=== PATIENT | male | born 1965 | race Hispanic/Latino ===

== ENCOUNTER 2017-03-09 09:14 | Emergency (ER) | payer SELFPAY ==
[2017-03-09 09:18] VITALS: BMI 38.0
--- NOTE | 2017-03-09 09:32 | ED PDOC ---
Arrival/HPI - General Chief Complaint: Trauma Time Seen by Provider: 03/09/17 09:21 Historian: Patient - History of Present Illness Narrative History of Present Illness (Text): 03/09/17 09:32 51 y/o male, no pmh, nkda, last tetanus under 4 years ago, c/o scalp laceration x 1 hour. Pt. stated that he accidentally scraped the scar against the sharp corner of the van without direct hard force, no LOC, event noticed and alert entirely, no nausea or vomiting, no dizziness, no headache, no change in vision , no history or family history of aneurysm or blood disorders, not on any antiplatete or anticoagulant, no night sweat, no other medical or psychological complaints. Past Medical History - Provider Review Nursing Documentation Reviewed: Yes - Psychiatric Hx Substance Use: No Family/Social History - Physician Review Nursing Documentation Reviewed: Yes Family/Social History: Unknown Family HX Smoking Status: Light Smoker < 10 Cigarettes Daily Hx Alcohol Use: No Hx Substance Use: No Allergies/Home Meds Allergies/Adverse Reactions: Allergies No Known Allergies Allergy (Verified 03/09/17 09:17) Review of Systems - Review of Systems Constitutional: absent: Fatigue, Fevers Eyes: absent: Vision Changes ENT: absent: Hearing Changes Respiratory: absent: SOB, Cough Cardiovascular: absent: Chest Pain Genitourinary Male: absent: Dysuria, Frequency Musculoskeletal: absent: Arthralgias, Back Pain Skin: Laceration. absent: Rash, Pruritis, Skin Lesions, Abscess, Ulcer Neurological: absent: Headache, Dizziness, Focal Weakness, Gait Changes, Speech Changes Physical Exam Vital Signs Reviewed: Yes Vital Signs Temp Pulse Resp BP Pulse Ox 03/09/17 09:18 98.2 F 72 18 163/91 H 98 Temperature: Afebrile Blood Pressure: Hypertensive Pulse: Regular Respiratory Rate: Normal Appearance: Positive for: Well-Appearing, Non-Toxic, Comfortable Pain Distress: Mild Mental Status: Positive for: Alert and Oriented X 3 - Systems Exam Head: Present: Atraumatic, Other (there is approx. 3cm superficial scalp laceration noted on the left parietal region with no oozing, no scalp or skull tenderness, no bony tenderness, no temporal artery tenderness. ) Pupils: Present: PERRL Extroacular Muscles: Present: EOMI Conjunctiva: Present: Normal Mouth: Present: Moist Mucous Membranes Neck: Present: Normal Range of Motion, Trachea Midline. No: MIDLINE TENDERNESS , Paraspinal Tenderness, Lymphadenopathy Respiratory/Chest: Present: Clear to Auscultation, Good Air Exchange. No: Respiratory Distress, Accessory Muscle Use Cardiovascular: Present: Regular Rate and Rhythm, Normal S1, S2. No: Murmurs Abdomen: Present: Normal Bowel Sounds. No: Tenderness, Distention, Peritoneal Signs Back: Present: Normal Inspection Upper Extremity: Present: Normal Inspection. No: Cyanosis, Edema Lower Extremity: Present: Normal Inspection. No: Edema Neurological: Present: GCS=15, CN II-XII Intact, Speech Normal, Motor Func Grossly Intact, Gait Normal, Memory Normal, Other (normal finger to nose test, normal heel to pratt test, no drift, no weakness, walking with normal gait and posture. ) Skin: Present: Warm, Dry, Normal Color. No: Rashes Psychiatric: Present: Alert, Oriented x 3, Normal Insight, Normal Concentration Medical Decision Making ED Course and Treatment: 03/09/17 09:54 -Pt. refused pain med. -Pt. refused radiology studies and there is no emergent indication of the CT head at this point to be concerning for the ICH. -pt. stated that he sustained the laceration from accidentally bumped to the van and no cardiopulmonary or neurological symptoms/signs prior to the injury. -Sensation intact, motor 5/5, wound irrigate with normal saline with 500cc, clean with betadine, 1% lidocaine injected approx. 1cc, sterile procedure, 7 willa with good approximation, hemostasis obtained, bacitracin and gauze dressing, sensation intact, motor 5/5, bleeding less than 5cc during procedure. -Discharge home with bacitracin oinment, take tylenol for pain, ice compression , willa need to be removed by day 7, return to the ER immediately if you have nausea/vomiting/dizziness/change in vision or any new or worsening signs or symptoms, follow up with your own pmd within 2 days, return to the ER for any new or worsening signs or symptoms. - PA / RESOURCE PARAPROFESSIONAL / Resident Statement / has reviewed & agrees with the documentation as recorded. Disposition/Present on Arrival - Present on Arrival Any Indicators Present on Arrival: No History of DVT/PE: No History of Uncontrolled Diabetes: No Urinary Catheter: No History of Decub. Ulcer: No History Surgical Site Infection Following: None - Disposition Have Diagnosis and Disposition been Completed?: Yes Diagnosis: Scalp laceration Disposition: HOME/ ROUTINE Disposition Time: 09:59 Patient Plan: Discharge Condition: GOOD Additional Instructions: -Discharge home with bacitracin oinment, take tylenol for pain, ice compression , willa need to be removed by day 7, return to the ER immediately if you have nausea/vomiting/dizziness/change in vision or any new or worsening signs or symptoms, follow up with your own pmd within 2 days, return to the ER for any new or worsening signs or symptoms. Prescriptions: Acetaminophen [Tylenol 325mg tab] 2 tab PO QID PRN #35 tab PRN Reason: Other Bacitracin Ointment [Bacitracin] 1 appful TOP BID #15 g [facility]errals: [facility] [place] [Outside] - Follow up with primary Forms: WORK NOTE
[2017-03-09 09:36] VITALS: TEMP 98.2; O2SAT 98
[2017-03-09 10:12] VITALS: BP 159/90; PULSE 76; RESP 16
== END 2017-03-09 10:10 | disposition home or self-care (01) ==
LOC: ED 09:14
DX: S01.01XA Laceration without foreign body of scalp, initial encounter (principal); W22.8XXA Striking against or struck by other objects, initial encounter; F17.210 Nicotine dependence, cigarettes, uncomplicated

== ENCOUNTER 2017-03-16 11:53 | Emergency (ER) | payer SELFPAY ==
[2017-03-16 11:53] VITALS: BMI 38.0
[2017-03-16 12:08] VITALS: BP 137/85; PULSE 88; TEMP 99.3; O2SAT 99
[2017-03-16 12:14] VITALS: RESP 18
--- NOTE | 2017-03-16 12:30 | ED PDOC ---
Arrival/HPI - General Chief Complaint: Suture/Staple Removal Time Seen by Provider: 03/16/17 12:20 Historian: Patient - History of Present Illness Narrative History of Present Illness (Text): 03/16/17 12:24 51 y/o male, here for the staple removal from the scalp for 7 days. Pt. stated that it has been healing well and dry, no headache or dizziness, no change in vision, no night sweat, no other medical or psychological complaints. Past Medical History - Provider Review Nursing Documentation Reviewed: Yes - Infectious Disease Hx of Infectious Diseases: None - Psychiatric Hx Substance Use: No Family/Social History - Physician Review Nursing Documentation Reviewed: Yes Family/Social History: Unknown Family HX Smoking Status: Light Smoker < 10 Cigarettes Daily Hx Alcohol Use: No Hx Substance Use: No Allergies/Home Meds Allergies/Adverse Reactions: Allergies No Known Allergies Allergy (Verified 03/09/17 09:17) Review of Systems - Review of Systems Constitutional: absent: Fatigue, Fevers Eyes: absent: Vision Changes ENT: absent: Hearing Changes Respiratory: absent: SOB, Cough Cardiovascular: absent: Chest Pain Gastrointestinal: absent: Abdominal Pain, Nausea, Vomiting Skin: absent: Rash, Pruritis Neurological: absent: Headache, Dizziness Physical Exam Vital Signs Reviewed: Yes Vital Signs Temp Pulse Resp BP Pulse Ox 03/16/17 12:13 99.3 F 88 18 137/85 99 03/16/17 12:05 99.3 F 88 16 137/85 99 Temperature: Afebrile Blood Pressure: Normal Pulse: Regular Respiratory Rate: Normal Appearance: Positive for: Well-Appearing, Non-Toxic, Comfortable Pain Distress: None Mental Status: Positive for: Alert and Oriented X 3 - Systems Exam Head: Present: Normocephalic, Other (Lt. parietal region with visible 7 willa and healed wound, no skull deformity. ) Pupils: Present: PERRL Extroacular Muscles: Present: EOMI Conjunctiva: Present: Normal Ears: Present: NORMAL TM, Normal Canal. No: Erythema Mouth: Present: Moist Mucous Membranes Neck: Present: Normal Range of Motion Respiratory/Chest: Present: Clear to Auscultation, Good Air Exchange. No: Respiratory Distress, Accessory Muscle Use Cardiovascular: Present: Regular Rate and Rhythm, Normal S1, S2. No: Murmurs Abdomen: Present: Normal Bowel Sounds. No: Tenderness, Distention, Peritoneal Signs Upper Extremity: Present: Normal Inspection. No: Cyanosis, Edema Lower Extremity: Present: Normal Inspection. No: Edema Neurological: Present: GCS=15, Speech Normal, Motor Func Grossly Intact, Gait Normal, Memory Normal Skin: Present: Warm, Dry, Normal Color. No: Rashes Psychiatric: Present: Alert, Oriented x 3, Normal Insight, Normal Concentration Medical Decision Making ED Course and Treatment: 03/16/17 12:25 -7 willa removed and there is no remaining willa or sutures -Discharge home with education on follow up with your own pmd within 2 days, return to the ER for any new or worsening signs or symptoms. - PA / LOG SKIDDER / Resident Statement MD/DO has reviewed & agrees with the documentation as recorded. Disposition/Present on Arrival - Present on Arrival Any Indicators Present on Arrival: No History of DVT/PE: No History of Uncontrolled Diabetes: No Urinary Catheter: No History of Decub. Ulcer: No History Surgical Site Infection Following: None - Disposition Have Diagnosis and Disposition been Completed?: Yes Diagnosis: Removal of willa Disposition: HOME/ ROUTINE Disposition Time: 12:31 Patient Plan: Discharge Condition: GOOD Additional Instructions: -Discharge home with education on follow up with your own pmd within 2 days, return to the ER for any new or worsening signs or symptoms. Referrals: [facility] [place] - Follow up with primary Forms: WORK NOTE
== END 2017-03-16 12:38 | disposition home or self-care (01) ==
LOC: ED 11:53
DX: Z48.02 Encounter for removal of sutures (principal)